=== PATIENT | female | born 1950 ===

== ENCOUNTER 2018-12-29 05:12 | Day surgery (SDC) | payer OTHER ==
[~2018-12-29 05:12] MED LIST: DIOVAN320 MG PO; GLYCOTROL CAPS1 EACH PO; LEVO-T137 MCG PO; PROTONIX40 MG PO; SIDEROL TABLET1 EACH PO
[2018-12-29] MEDS ORDERED: ULTRACET PO (09:06)
[2018-12-29] MEDS ORDERED: MACROBID 100 M100 MG PO (09:06)
== END 2018-12-29 11:10 | disposition home or self-care (01) ==
LOC: CIR.AMB 05:12
DX: N81.11 Cystocele, midline (principal); N39.3 Stress incontinence (female) (male); N81.5 Vaginal enterocele
CPT/HCPCS: 57240; 57288; C1771